=== PATIENT | female | born 1955 | race Caucasian/White ===

== ENCOUNTER 2024-12-02 23:31 | Emergency (ER) | payer MEDICARE, OTHER, SELFPAY ==
[2024-12-02 23:32] VITALS: BP 157/89; PULSE 101; RESP 18; TEMP 37.1; O2SAT 92; BMI 23.1
[2024-12-03] VITALS (12 sets, daily range): BP systolic 142–163; BP diastolic 83–86; PULSE 84–100; RESP 15–32; TEMP 37.2–38.3; O2SAT 85–97
--- NOTE | 2024-12-03 00:02 | RAD_ITS ---
PROCEDURE: CHEST PA AND LATERAL REASON FOR EXAM: Cough TECHNIQUE: Frontal and lateral views of the chest. COMPARISON: None. FINDINGS: The lungs are clear. Calcified incidental granuloma anterior right upper lobe. Moderate to severe appearing upper zone predominant pulmonary emphysema. No pleural effusion. The cardiac and mediastinal contours appear within limits. Atherosclerotic changes at the aortic arch. Mild right acromioclavicular joint osteoarthrosis. RAD/Chest PA and Lateral IMPRESSION: No evidence of acute disease. Moderate to severe appearing upper zone predominant emphysematous change. May consider follow-up low-dose chest CT screening. Reading Location: [id number]
[2024-12-03 00:15] LABS: Absolute Lymphocyte Count 0.29 X10^3/uL (0.83-4.51); Basophil# 0.03 X10^3/uL; Basophil% 0.2 % (0-1); Hematocrit 41.7 % (37-47); Hemoglobin 13.9 g/dL (12.0-15.0); Lymphocyte # 0.29 X10^3/ul (0.83-4.51); Lymphocyte % 2.2 % (19-41); Mean Corp Hgb Conc 33.3 g/dL (32-36); Mean Corpuscular Hgb 31.6 pg (27.0-32.0); Mean Corpuscular Volume 94.8 fL (81-99); Monocyte# 1.43 X10^3/uL; NRBC Flagged by Analyzer 0 % (0-5); Neutrophil # 10.95 X10^3/uL (2.7-7.7); Neutrophil % 84.6 % (47-70); POSITIVE DIFFERENTIAL YES; Platelet Count 277 K/mm3 (150-450); RBC Distribution Width CV 12.5 % (11.6-14.6); RBC Distribution Width SD 43.8 fl (35.1-43.9)
[2024-12-03 00:25] LABS: ALB/GLOB Ratio 1.7 RATIO (0.9-2.4); AST(SGOT) 35 U/L (<=31); Alanine Aminotransfer ALT/SGPT 29 U/L (<=34); Albumin, Serum 4.5 g/dL (3.4-4.8); Alkaline Phosphatase 88 U/L (35-104); Anion Gap 16 (5-15); BUN 10 mg/dL (4-19); Calcium 8.8 mg/dL (7.6-11.0); Carbon Dioxide 20.2 mmol/L (22.0-29.0); Chloride 98 mmol/L (96-108); Creatinine, Serum 0.8 mg/dL (0.6-1.0); EST Glomerular Filtration Rate 79 (>60); Estimated Creatinine Clearance 58.04 ml/min; Globulin 2.6 g/dL (2.2-4.2); Glucose 163 mg/dL (70-99); Lipase 8 U/L (13-75); Protein, Total 7.1 g/dL (5.9-8.4); Sodium Level 135 mmol/L (133-145); Total Bilirubin 0.43 mg/dL (0.00-1.30)
[2024-12-03] MEDS: 0.9% Normal Saline (1000mL) 1,000 ML 999 ML IV (01:44)
[2024-12-03] MEDS: Acetaminophen 500 MG Tablet 1000 MG PO (01:44)
[2024-12-03] MEDS: Ondansetron 4 MG/2 ML Vial IV (01:44)
[2024-12-03] MEDS: Potassium Chloride Oral Tablet 20 MEQ 40 MEQ PO (01:45)
[2024-12-03 02:45] LABS: Mucous, Urine 0 SEEN /hpf (<or=2+); Squamous Epithelial Cells - UA 0 SEEN /hpf (5-10)
[2024-12-03 02:47] LABS: Color, Urine Yellow (Yellow); Glucose, Dipstick Normal (Normal); Ketone-Dipstick Negative (Negative); Leukocyte Esterase-Dipstick 100 /ul (Negative); Nitrite-Dipstick Positive (Negative); Occult Blood-Urine 150 /ul (Negative); Protein-Dipstick 30 mg/dl (Negative); Urine Bilirubin Dipstick Negative (Negative); Urine Clarity Sl. Cloudy (Clear); Urine Urobilinogen Normal (Normal)
--- NOTE | 2024-12-03 02:53 | EX.ED.DYSGE1 ---
HPI History of Present Illness Chief Complaint: General Illness Informant: patient and family Narrative Narrative: Presents here with daughter private vehicle for transient confusion. Diagnosed with influenza A today. She had sinus congestion this past Saturday 6 days ago. Symptoms resolved over the weekend Saturday return. Yesterday noted myalgias and cough. No vomiting or diarrhea. Quick care testing positive for influenza. This evening per daughter states she noticed to be more confused had trouble getting her attention multiple times. She had nausea and vomiting x 2 no hematemesis. Currently in the ED she is back to her normal self. Currently reporting some nausea. Denies asthma or COPD history. PFSH PFSH Home Medications ?Medication ?Instructions ?Recorded ?Last Taken ?Type cefdinir 300 mg capsule 300 mg PO Q12H #14 caps 12/03/24 Unknown Rx ondansetron 4 mg disintegrating 4 mg PO Q8H PRN PRN Nausea #10 tabs 12/03/24 Unknown Rx tablet Allergy/AdvReac Type Severity Reaction Status Date / Time No Known Allergies Allergy Verified 12/02/24 23:32 Social History Smoking Status: Never smoker [facility] ED Constitutional Constitutional ED: Reports fever(s); Denies chills or sweats ENT ENT ED: Denies sore throat Cardiovascular Cardiovascular: Denies chest pain, leg edema, palpitations or racing heartbeat Respiratory/Chest Respiratory/Chest: Reports cough; Denies dyspnea or dyspnea on exertion Gastrointestinal Gastrointestinal: Denies abdominal pain, diarrhea, nausea or vomiting Genitourinary Genitourinary ED: Denies dysuria, hematuria or urinary frequency Musculoskeletal Musculoskeletal: Reports myalgias; Denies back pain, extremity pain or neck pain Integumentary Denies rash or wounds Neurologic Neurologic: Reports headache(s); Denies paresthesias or weakness EXAM Physical Exam Const Vital Signs: 12/02/24 23:32 12/03/24 00:42 12/03/24 00:42 Temperature 98.7 F 100.9 F H Temperature Source Oral Oral Pulse Rate 101 H 100 Respiratory Rate 18 16 Respiratory Effort Respiratory Pattern Blood Pressure 157/89 H 145/84 H Blood Pressure Mean 111 104 Pulse Ox 92 94 Oxygen Delivery Method Room Air Room Air Room Air Oxygen Flow Rate (L/min) 12/03/24 00:42 12/03/24 00:48 12/03/24 01:20 Temperature Temperature Source Pulse Rate Respiratory Rate 22 H Respiratory Effort Normal Non-Labored Respiratory Pattern Normal Blood Pressure Blood Pressure Mean Pulse Ox 95 85 Oxygen Delivery Method Room Air Room Air Oxygen Flow Rate (L/min) 12/03/24 01:32 12/03/24 01:50 12/03/24 01:54 Temperature 100.6 F H Temperature Source Oral Pulse Rate 84 Respiratory Rate 22 H Respiratory Effort Respiratory Pattern Blood Pressure 142/84 H Blood Pressure Mean 103 Pulse Ox 91 87 96 Oxygen Delivery Method Room Air Room Air Nasal Cannula Oxygen Flow Rate (L/min) 2 12/03/24 02:00 12/03/24 02:18 12/03/24 02:30 Temperature 100.4 F H Temperature Source Oral Pulse Rate 86 89 96 Respiratory Rate 15 19 H 22 H Respiratory Effort Respiratory Pattern Blood Pressure 148/85 H 163/86 H Blood Pressure Mean 106 109 Pulse Ox 97 94 97 Oxygen Delivery Method Nasal Cannula Oxygen Flow Rate (L/min) 2 12/03/24 02:45 12/03/24 03:00 12/03/24 03:00 Temperature 98.9 F Temperature Source Oral Pulse Rate 89 91 91 Respiratory Rate 25 H 19 H 32 H Respiratory Effort Respiratory Pattern Blood Pressure 143/83 H 144/84 H 144/84 H Blood Pressure Mean 100 104 103 Pulse Ox 91 95 92 Oxygen Delivery Method Nasal Cannula Oxygen Flow Rate (L/min) 2 12/03/24 03:10 Temperature 98.9 F Temperature Source Pulse Rate 91 Respiratory Rate 19 H Respiratory Effort Respiratory Pattern Blood Pressure 144/84 H Blood Pressure Mean 104 Pulse Ox 94 Oxygen Delivery Method Oxygen Flow Rate (L/min) Positive well nourished and well developed General Appearance ED: well developed and NAD HEENT Reports moist mucous membranes normocephalic and atraumatic Eyes General Eye ED: Yes normal appearance of both eyes Neck full ROM Neck Narrative: No meningismus Chest Wall Chest: Negative for tenderness Resp normal respiratory effort and normal air movement Effort and Inspection: symmetric chest movement; Negative for respiratory distress Cardio regular rate, regular rhythm and no murmurs Peripheral Pulses: pulses 2+ throughout GI normal to inspection, nondistended, normoactive bowel sounds and non-tender Palpation: Negative for guarding or rebound tenderness present Extremity normal to inspection General Extremety ED: Negative for edema or tenderness General Extremity: Negative for edema Neuro oriented x3, CN's II-XII intact bilaterally and no sensory deficits noted Sensorium / Orientation: awake and alert Skin no rashes or lesions noted and no wounds MDM MDM MDM Narrative Medical decision making narrative: Interventions / MDM: Differential diagnosis: Influenza, hypokalemia, fever, UTI Diagnosis considered but do not suspect: Pneumonia however chest x-ray negative. My EKG interpretation: N/A Imaging independently reviewed and interpreted by myself: 1 view chest x-ray: No acute process. External documents reviewed: N/A Test considered but not ordered:N/A ED course: Patient developed low-grade temperature in the ED. Tylenol given for fever. Currently alert oriented x 3. Nursing protocol labs were obtained along with chest x-ray. Labs noted potassium 3.0, oral replacement ordered. Creatinine 0.8. White count 13 per hemoglobin 13.9. Lipase normal. Chest x-ray negative. IV fluids and Zofran for symptom control. 0320: Interim patient transient hypoxia while sitting in bed. She initially placed on oxygen. With ambulation transiently at 90% and there was no respiratory distress heart rate was 106 at that time per nursing. Urine positive for infection. With her fever, urine culture sent. She started on antibiotics. I considered with her Tamiflu as she had more myalgias symptoms yesterday for possible new infectious viral symptoms. However she declines Tamiflu. She agrees with the antibiotics for UTI. She will continue antibiotics, Zofran to her pharmacy. I discussed strict return precautions with any respiratory complaints. All questions were answered. Re-evaluation: stable Disposition discussed with patient/family/significant other: Patient and daughter. Case discussed with consulting clinician: N/A This note was generated with [employer] dictation software. It may contain incorrect words, spelling, and punctuation that were not noted in checking the note before signing. Lab Data Attestation: I reviewed the patient's lab results. Labs: Laboratory Results - last 24 hr 12/02/24 12/03/24 23:40 02:40 WBC 13.0 H RBC 4.40 Hgb 13.9 Hct 41.7 MCV 94.8 MCH 31.6 MCHC 33.3 RDW Std Deviation 43.8 RDW Coeff of Angelita 12.5 Plt Count 277 MPV 9.0 Immature Gran % (Auto) 2.000 H Neut % (Auto) 84.6 H Lymph % (Auto) 2.2 L [place] % (Auto) 11.0 H Eos % (Auto) 0.0 Baso % (Auto) 0.2 Absolute Neuts (auto) 11.0 H Absolute Lymphs (auto) 0.29 L Nucleated RBC % 0 Sodium 135 Potassium 3.0 L Chloride Direct 98 Carbon Dioxide 20.2 L Anion Gap 16 H BUN 10 Creatinine 0.8 Estim Creat Clear Calc 58.04 Est GFR (MDRD) Non-Af 79 BUN/Creatinine Ratio 13.0 Glucose 163 H Calcium 8.8 Total Bilirubin 0.43 AST 35 H ALT 29 Alkaline Phosphatase 88 Total Protein 7.1 Albumin 4.5 Globulin 2.6 Albumin/Globulin Ratio 1.7 Lipase 8 L Urine Color Yellow Urine Clarity Sl. Cloudy Urine pH 7.0 Ur Specific [place] 1.010 Urine Protein 30 H Urine Glucose (UA) Normal Urine Ketones Negative Urine Occult Blood 150 H Urine Nitrite Positive H Urine Bilirubin Negative Urine Urobilinogen Normal Ur Leukocyte Esterase 100 H Urine RBC 0 SEEN Urine WBC 0-5 SEEN Ur Squamous Epith Cells 0 SEEN Urine Bacteria 4+ Urine Mucus 0 SEEN Radiography Diagnostic Testing: Clinical Impression(s) from Imaging Studies Chest X-Ray 12/03/24 00:02 IMPRESSION: No evidence of acute disease. Moderate to severe appearing upper zone predominant emphysematous change. May consider follow-up low-dose chest CT screening. Reading Location: [facility] Discharge Plan Triage Chief Complaint: General Illness ED Provider: Morris Tavares Dx/Rx/DC Orders Clinical Impression: Influenza, Fever, Acute UTI Instructions: Urinary Tract Infections in Women, ED Fever Control (Adult), ED Influenza (Adult) Prescriptions: New ondansetron 4 mg tablet,disintegrating 4 mg PO Q8H PRN PRN (Reason: Nausea) Qty: 10 0RF cefdinir 300 mg capsule 300 mg PO Q12H Qty: 14 0RF Primary Care Provider: Care Physician,No Primary Referrals: Genaro Otero MD [Med Staff - Active Staff] - 1 Week Care Physician,No Primary [Primary Care Provider] - Activity Restrictions/Additional Instructions: Labs stable. Potassium 3.0 with oral replacement. Your creatinine 0.8. Your chest x-ray negative. Urine with infection. You are diagnosed with influenza earlier. Urine culture sent. You are started on antibiotic. Finish antibiotic as prescribed. Continue oral fluids for hydration. You develop any worsening respiratory symptoms, return to the ED for reevaluation. Print Language: Gibraltarian Disposition Disposition: Home, Self Care Discharge Date/Time: 12/03/24 03:45
[2024-12-03 02:56] LABS: Bacteria 4+ /hpf (None Seen); Red Blood Cells-Urine 0 SEEN /hpf (0-5); White Blood Cells 0-5 SEEN /hpf (0-5)
[2024-12-03] MEDS: Cefdinir 300 MG Capsule PO (03:39)
--- NOTE | 2024-12-03 03:40 | ED.RN ---
This RN walked into the patient room due to o2 saturations being 86% on 2L. The patient was asleep. This RN informed Dr Tavares of the patient saturations being low while asleep and he gave verbal ok to send home. This RN educated the patient on s/s of SOB, when to return to the ER, and increasing fluid intake. The patient verbalized agreement and teachback.
== END 2024-12-03 03:45 | disposition home or self-care (01) ==
PROVIDERS: Emergency Provider Emergency Medicine; Visit Provider Emergency Medicine
DX: J11.1 Influenza due to unidentified influenza virus with other respiratory manifestations (principal); N39.0 Urinary tract infection, site not specified; R41.0 Disorientation, unspecified; R11.2 Nausea with vomiting, unspecified
CPT/HCPCS: 71046; 80053; 81001; 83690; 85025; 87086; 87088; 87186; 94760; 96361; 96374; 99284; A4216; J2405

== ENCOUNTER 2024-12-07 21:30 | Emergency (ER) | payer MEDICARE, OTHER, SELFPAY ==
[2024-12-07] VITALS (7 sets, daily range): BP systolic 122–168; BP diastolic 80–97; PULSE 80–89; RESP 18–20; TEMP 36.5–37.3; O2SAT 94–99; BMI 23.8
--- NOTE | 2024-12-07 21:36 | RAD_ITS ---
PROCEDURE: CHEST PA AND LATERAL REASON FOR EXAM: Cough TECHNIQUE: Frontal and lateral views of the chest. COMPARISON: Chest radiograph dated 12/03/2024 FINDINGS: The heart size is normal. The mediastinal contour is unremarkable. The lungs are clear. Calcified granuloma within the right mid lung. The bones are unremarkable. RAD/Chest PA and Lateral IMPRESSION: NEGATIVE CHEST Reading Location: [facility]
[2024-12-07 22:07] LABS: Absolute Lymphocyte Count 1.18 X10^3/uL (0.83-4.51); Absolute Neutrophil Count 2.4 X10^3/uL (2.0-7.7); Basophil# 0.02 X10^3/uL; Basophil% 0.4 % (0-1); Hematocrit 40.1 % (37-47); Hemoglobin 13.8 g/dL (12.0-15.0); Lymphocyte # 1.18 X10^3/ul (0.83-4.51); Lymphocyte % 23.1 % (19-41); Mean Corp Hgb Conc 34.4 g/dL (32-36); Mean Corpuscular Hgb 32.2 pg (27.0-32.0); Mean Corpuscular Volume 93.7 fL (81-99); Mean Platelet Vol. 9.3 fl (6.2-12.0); Monocyte# 1.48 X10^3/uL; NRBC Flagged by Analyzer 0 % (0-5); Neutrophil # 2.39 X10^3/uL (2.7-7.7); Neutrophil % 46.9 % (47-70); Platelet Count 262 K/mm3 (150-450); RBC Distribution Width CV 12.1 % (11.6-14.6); RBC Distribution Width SD 42.1 fl (35.1-43.9); Red Blood Count 4.28 M/mm3 (4.2-5.4); White Blood Count 5.1 K/mm3 (4.4-11.0)
--- NOTE | 2024-12-07 22:10 | EKG12_ITS ---
Test Reason : DYSRHYTHMIA Blood Pressure : */* mmHG Vent. Rate : 79 BPM Atrial Rate : 79 BPM P-R Int : 164 ms QRS Dur : 78 ms QT Int : 402 ms P-R-T Axes : 78 21 46 degrees QTcB Int : 460 ms Sinus rhythm with marked sinus arrhythmia Otherwise normal ECG Confirmed by Sina Fortune ([id number]), digital editor APRYL NOGUEIRA ([id number]) on 12/08/2024 10:45:25 AM Referred By: Confirmed By: Sina Fortune
--- NOTE | 2024-12-07 22:15 | ED.VIS.DYS ---
HPI History of Present Illness Chief Complaint: Shortness of Breath Informant: patient and family Narrative Narrative: Patient is a 69-year-old female with history of tobacco use (quit vaping within the last year and before that smokes cigarettes) but has not seen a doctor for routine medical care in 8 years presenting for continued cough and flulike symptoms. Patient was diagnosed at [facility] with influenza 5 days ago. She was seen in our ER and also diagnosed with urinary tract infection (culture positive, pansensitive) and treated with cefdinir. She notes that symptom has improved. She states she is continue to have a cough that is productive of jose/yellow thick sputum. She is not sure if the cough is not improving or worsening. She states her back and chest feels sore from all the coughing. She denies any fevers. She has had some intermittent lightheadedness and dizziness as well as dyspnea on exertion. Denies any swelling of her legs. She states she has been drinking a lot of fluids with frequency of urination. She denies any swelling of her legs. Denies history of DVT or PE. Has been taking Mucinex, nasal spray and tried Tessalon Perles but did not find them helpful for her symptoms. Her family at the bedside who is a medic states that she was concerned because she listened to her lungs and they sounded abnormal especially on the left and her pulse seemed irregular. No other complaints or concerns reported at this time [facility] Medical History Former smokeless tobacco use Former cigarette smoker Home Medications ?Medication ?Instructions ?Recorded ?Last Taken ?Type cefdinir 300 mg capsule 300 mg PO Q12H #14 caps 12/03/24 Unknown Rx ondansetron 4 mg disintegrating 4 mg PO Q8H PRN PRN Nausea #10 tabs 12/03/24 Unknown Rx tablet albuterol sulfate 90 mcg/actuation 1 - 2 puff inhalation Q4H PRN PRN 12/07/24 Unknown Rx aerosol inhaler (Ventolin HFA) Wheezing #1 inh benzonatate 200 mg capsule 200 mg PO Q8 12/07/24 Unknown History fluticasone propionate 50 1 spray intranasal QHS 12/07/24 Unknown History mcg/actuation nasal spray,suspension prednisone 20 mg tablet 40 mg (2 x 20 mg) PO DAILY #10 tabs 12/07/24 Unknown Rx Allergy/AdvReac Type Severity Reaction Status Date / Time No Known Allergies Allergy Verified 12/07/24 21:31 Surgical History Hx of varicose vein ligation History of tonsillectomy and adenoidectomy Hx of hysterectomy Social History Smoking Status: Former smoker ROS ROS ED Constitutional Constitutional ED: Denies chills or fever(s) ENT ENT ED: Reports other Details: Prior nasal congestion?resolved ; Denies rhinorrhea or sore throat Cardiovascular Cardiovascular: Denies chest pain or palpitations Respiratory/Chest Respiratory/Chest: Reports cough, dyspnea on exertion and sputum Gastrointestinal Gastrointestinal: Reports nausea; Denies abdominal pain, constipation, diarrhea, melena or vomiting Genitourinary Genitourinary ED: Reports urinary frequency; Denies dysuria or hematuria Musculoskeletal Musculoskeletal: Denies arthralgias or myalgias Integumentary Denies rash Neurologic Neurologic: Reports weakness Psychiatric Psychiatric: Denies anxiety Hematologic/Lymphatic Hematologic/Lymphatic: Denies easy bleeding or easy bruising EXAM Physical Exam Const Vital Signs: 12/07/24 21:31 12/07/24 21:35 12/07/24 22:00 Temperature 97.7 F L 97.7 F L Temperature Source Oral Oral Pulse Rate 84 84 Respiratory Rate 20 H 20 H Respiratory Effort Respiratory Depth Respiratory Pattern Blood Pressure 168/97 H 168/97 H Blood Pressure Mean 120 120 Pulse Ox 94 94 95 Oxygen Delivery Method Room Air Room Air Room Air Oxygen Flow Rate (L/min) 12/07/24 22:00 12/07/24 22:00 12/07/24 22:26 Temperature Temperature Source Pulse Rate 80 Respiratory Rate 18 18 Respiratory Effort Short of Breath Labored Respiratory Depth Normal Respiratory Pattern Normal Normal Blood Pressure Blood Pressure Mean Pulse Ox 95 Oxygen Delivery Method Room Air Room Air Oxygen Flow Rate (L/min) 12/07/24 22:35 12/07/24 22:48 12/07/24 23:00 Temperature 99.2 F H 99.2 F H Temperature Source Oral Oral Pulse Rate 80 89 81 Respiratory Rate 18 18 18 Respiratory Effort Respiratory Depth Respiratory Pattern Blood Pressure 122/80 H 151/87 H Blood Pressure Mean 94 108 Pulse Ox 99 94 94 Oxygen Delivery Method Non-Rebreather Room Air Room Air Oxygen Flow Rate (L/min) 6 12/08/24 00:00 12/08/24 00:00 Temperature 98.9 F 98.9 F Temperature Source Oral Pulse Rate 86 86 Respiratory Rate 18 18 Respiratory Effort Respiratory Depth Respiratory Pattern Blood Pressure 158/85 H 158/85 H Blood Pressure Mean 109 109 Pulse Ox 95 95 Oxygen Delivery Method Room Air Oxygen Flow Rate (L/min) Positive well nourished and well developed General Appearance ED: well developed and NAD HEENT Reports TM's clear and moist mucous membranes atraumatic Tympanic Membrane ED: Yes TM's clear Eyes PERRL Neck supple and no JVD Resp normal respiratory effort Resp Narrative: Intermittent harsh cough on exam. Scattered rhonchi and rales present. No wheezing appreciated. Auscultation: Negative for diminished lung sounds Cardio regular rate, regular rhythm and no murmurs GI non-tender Extremity normal to inspection General Extremety ED: Negative for edema General Extremity: Negative for edema Neuro oriented x3 Sensorium / Orientation: alert Motor Exam: Negative for general weakness Psych mental status grossly normal Skin no wounds Rashes: no rashes MDM MDM MDM Narrative Medical decision making narrative: Patient 69-year-old female with prior positive influenza diagnosed last week as well as urinary tract infection (still on cefdinir) presenting for concern of worsening flu symptoms, weakness and cough. Patient looks nontoxic. Protocol labs including two-view chest x-ray, CBC and BMP had been obtained. Will add on EKG due to the patient's age and so there is no acute ischemic process or signs of associated myocarditis/pericarditis. EKG shows sinus rhythm with sinus arrhythmia. Patient is given a DuoNeb in the emergency room and Tylenol. She is found to mildly hypokalemic with a potassium of 3.2. Is given oral potassium replacement in the emergency room. Chest x-ray viewed by myself as well as radiology does not show any acute infiltrate. Lab work largely normal besides the potassium being mildly low. Is ambulated emergency room and often stays around 90-91 but does drop to 89 for a very short amount of time but recovers quickly. At rest she is 91 to 93%. At this time will discharge home with very close return precautions. Patient is quite agreeable with this. Will be started on prednisone and albuterol as well as I suspect she does have a component of bronchitis and possible reactive airway with this. Discussed with patient that her oxygen was borderline and should she worsen she might need to come back and be admitted. She does verbalize agreement understand this plan. She does not have a leukocytosis and I do not suspect a secondary bacterial pneumonia requiring further antibiotics. Patient and family member agreeable plan of care. Patient discharged home in stable condition. Lab Data Attestation: I reviewed the patient's lab results. Labs: Laboratory Results - last 24 hr 12/07/24 21:50 WBC 5.1 RBC 4.28 Hgb 13.8 Hct 40.1 MCV 93.7 MCH 32.2 H MCHC 34.4 RDW Std Deviation 42.1 RDW Coeff of Angelita 12.1 Plt Count 262 MPV 9.3 Immature Gran % (Auto) 0.600 Neut % (Auto) 46.9 L Lymph % (Auto) 23.1 [place] % (Auto) 29.0 H Eos % (Auto) 0.0 Baso % (Auto) 0.4 Absolute Neuts (auto) 2.4 Absolute Lymphs (auto) 1.18 Nucleated RBC % 0 Sodium 136 Potassium 3.2 L Chloride 96 L Carbon Dioxide 28.5 Anion Gap 12 BUN 6 Creatinine 0.62 L Estim Creat Clear Calc 58.04 Est GFR (MDRD) Non-Af 95 BUN/Creatinine Ratio 9.4 L Glucose 88 Calcium 9.0 Radiography Chest X-Ray - ED: 2 View, Read by ED Physician, Read by Radiologist and No Acute Disease Diagnostic Testing: Clinical Impression(s) from Imaging Studies Chest X-Ray 12/07/24 21:36 IMPRESSION: NEGATIVE CHEST [facility] Rhythm Strip Rhythm Strip: Sinus Rhythm Rate: 79 Ectopy: None EKG Initial EKG: Attestation: I personally reviewed and interpreted this EKG as follows: Interpretation: Sinus Rhythm Comments: Normal sinus rhythm rate of 79 bpm with sinus arrhythmia Normal axis Normal intervals Normal ST segments Discharge Plan Triage Chief Complaint: Shortness of Breath ED Provider: Olive Mann Dx/Rx/DC Orders Clinical Impression: Influenza, Bronchitis Instructions: ED Bronchitis, No Antibiotic (Adult), ED Influenza (Adult) Prescriptions: New prednisone 20 mg tablet 40 mg PO DAILY Qty: 10 0RF albuterol sulfate [Ventolin HFA] 90 mcg/actuation HFA aerosol inhaler 1 - 2 puff inhalation Q4H PRN PRN (Reason: Wheezing) Qty: 1 0RF No Action fluticasone propionate 50 mcg/actuation spray,suspension 1 spray INTRANASAL QHS Patient Comments: USE 1 SPRAY IN EACH NOSTRIL DAILY AT BEDTIME FOR CONGESTION FOR 5 DAYS benzonatate 200 mg capsule 200 mg PO Q8 ondansetron 4 mg tablet,disintegrating 4 mg PO Q8H PRN PRN (Reason: Nausea) Qty: 10 0RF cefdinir 300 mg capsule 300 mg PO Q12H Qty: 14 0RF Primary Care Provider: Care Physician,No Primary Referrals: Loraine Dunn [Non-Staff] - Care Physician,No Primary [Primary Care Provider] - Activity Restrictions/Additional Instructions: Your potassium was mildly low. Please try to increase your fluid intake with electrolyte solution such as Gatorade or Pedialyte. If you feel your symptoms worsen please do not hesitate to return to the emergency room as your oxygen was borderline today but this time I do not think you require admission. Print Language: Prydeinig Disposition Disposition: Home, Self Care Discharge Date/Time: 12/08/24 00:09
[2024-12-07] MEDS: Ipratropium/Albuterol Sulfate 3 ML AMPUL.NEB INHALATION (22:26)
[2024-12-07 22:31] LABS: Anion Gap 12 (5-15); BUN 6 mg/dL (4-19); BUN/Creat Ratio 9.4 RATIO (10-20); Carbon Dioxide 28.5 mmol/L (21.0-32.0); Chloride 96 mmol/L (98-108); Creatinine, Serum 0.62 mg/dL (0.70-1.20); EST Glomerular Filtration Rate 95 (>60); Estimated Creatinine Clearance 58.04 ml/min (50-250); Glucose 88 mg/dL (70-99); Potassium 3.2 mmol/L (3.3-5.1); Sodium Level 136 mmol/L (133-145)
[2024-12-07] MEDS: Potassium Chloride Oral Tablet 20 MEQ PO (22:43)
[2024-12-07] MEDS: Acetaminophen 325 MG Tablet 650 MG PO (22:52)
[2024-12-08] VITALS: BP 158/85; PULSE 86; RESP 18; TEMP 37.2; O2SAT 95
== END 2024-12-08 00:09 | disposition home or self-care (01) ==
PROVIDERS: Emergency Provider Emergency Medicine; Visit Provider Emergency Medicine
DX: J11.1 Influenza due to unidentified influenza virus with other respiratory manifestations (principal); Z87.891 Personal history of nicotine dependence; I49.8 Other specified cardiac arrhythmias; J40 Bronchitis, not specified as acute or chronic; Z90.710 Acquired absence of both cervix and uterus
CPT/HCPCS: 71046; 80048; 85025; 93005; 94640; 94760; 99284; A4216